=== PATIENT | male | born 1960 | race Caucasian/White ===

== ENCOUNTER 2018-08-26 02:01 | Emergency (ER) | payer BC ==
[2018-08-26 02:13] VITALS: BP 161/84; PULSE 93; O2SAT 91
--- NOTE | 2018-08-26 02:28 | ERPHSYRPT ---
- History of Present Illness Time Seen by Provider: 08/26/18 02:24 Source: patient Exam Limitations: no limitations Patient Subjective Stated Complaint: pt is alert and oriented. pt is ambulatory with a steady gait. pt comes in via police car. pt is intoxicated. pt denies alcohol or drug use. pt states he had pneumonia and was hospitalized with it last week. pt is tearful and uncooperative. Triage Nursing Assessment: see above Physician History: 58-year-old white male arrives with complaint that he is here for halfway clearance. Patient denies any complaints at this time. Past medical history includes atherosclerotic coronary artery disease, diabetes , COPD, myocardial infarction 4 Past surgical history includes cardiac stents. Social history occasional alcohol negative tobacco use negative drugs. Timing/Duration: today Severity: moderate Modifying Factors: Improves With: nothing Associated Symptoms: No nausea, No vomiting, No abdominal pain, No shortness of breath, No heartburn, No diaphoresis, No cough, No chills, No chest pain, No fever, No headaches, No loss of appetite, No malaise, No rash, No syncope, No seizure, No weakness Allergies/Adverse Reactions: No Known Drug Allergies Allergy (Unverified 08/26/18 02:13) Immunizations Up to Date: Yes - Review of Systems Constitutional: No Fever, No Chills Eyes: No Symptoms Ears, Nose, & Throat: No Symptoms (I could probably) Respiratory: No Cough, No Dyspnea Cardiac: No Chest Pain, No Edema, No Syncope Abdominal/Gastrointestinal: No Symptoms, No Abdominal Pain, No Nausea, No Vomiting, No Diarrhea Genitourinary Symptoms: No Symptoms Musculoskeletal: No Back Pain, No Neck Pain Skin: No Symptoms, No Rash Neurological: No Dizziness, No Focal Weakness, No Sensory Changes Psychological: No Symptoms Endocrine: No Symptoms All Other Systems: Reviewed and Negative - Past Medical History Pertinent Past Medical History: Yes Neurological History: No Pertinent History ENT History: No Pertinent History Cardiac History: Myocardial Infarction ([place]) Respiratory History: Pneumonia Endocrine Medical History: No Pertinent History Musculoskeletal History: No Pertinent History GI Medical History: No Pertinent History History: No Pertinent History Psycho-Social History: No Pertinent History Male Reproductive Disorders: No Pertinent History - Past Surgical History Past Surgical History: Yes Neuro Surgical History: No Pertinent History Cardiac: No Pertinent History Respiratory: No Pertinent History Gastrointestinal: No Pertinent History Genitourinary: No Pertinent History Musculoskeletal: No Pertinent History Male Surgical History: No Pertinent History - Social History Smoking Status: Unknown if ever smoked Drug Use: none - Nursing Vital Signs Nursing Vital Signs: Initial Vital Signs Temperature 97.9 F 08/26/18 02:07 Pulse Rate 93 H 08/26/18 02:07 Respiratory Rate 16 08/26/18 02:07 Blood Pressure 161/84 08/26/18 02:07 O2 Sat by Pulse Oximetry 91 L 08/26/18 02:07 Pain Scale Pain Intensity 0 - Physical Exam General Appearance: no apparent distress, alert Eye Exam: PERRL/EOMI, eyes nml inspection Ears, Nose, Throat Exam: normal ENT inspection, TMs normal, pharynx normal, moist mucous membranes Neck Exam: normal inspection, non-tender, supple, full range of motion Respiratory Exam: normal breath sounds, lungs clear, No respiratory distress Cardiovascular Exam: regular rate/rhythm, normal heart sounds, normal peripheral pulses, capillary refill <2 sec Gastrointestinal/Abdomen Exam: soft, normal bowel sounds, No tenderness, No mass Back Exam: normal inspection, normal range of motion, No CVA tenderness, No vertebral tenderness Extremity Exam: normal inspection (final white female), normal range of motion, pelvis stable Neurologic Exam: alert, oriented x 3, cooperative, in house counsel II-XII nml as tested, normal mood/affect, nml cerebellar function, nml station & gait, sensation nml, No motor deficits Skin Exam: normal color (she), warm, dry, No rash Lymphatic Exam: No adenopathy SpO2 Interpretation: normal (91%) SpO2: 91 - Course Nursing assessment & vital signs reviewed: Yes Ordered Tests: Active Orders 24 hr Category Date Time Status EKG-ER Only STAT Care 08/26/18 02:23 Active ACETAMINOPHEN Stat Lab 08/26/18 02:23 Ordered CBC W DIFF Stat Lab 08/26/18 02:23 Ordered CMP Stat Lab 08/26/18 02:23 Ordered ETHYL ALCOHOL Stat Lab 08/26/18 02:23 Ordered SALICYLATE Stat Lab 08/26/18 02:23 Ordered UA W/RFX UR CULTURE Stat Lab 08/26/18 02:23 Uncollected Urine Triage Profile Stat Lab 08/26/18 02:23 Uncollected - Progress Progress: improved Progress Note: 08/26/18 02:52 58-year-old white male with history of atherosclerotic coronary artery disease, diabetes, COPD, myocardial infarction 2, cardiac stents He is brought by the police for clearance. Patient with stable vital signs he is alert oriented 3 he denies distress. He admits to consuming several beers he denies any illicit drug use. Patient physical exam. Head atraumatic normocephalic. Eyes PERRLA EOMI fundi are unremarkable. Ears TMs mckay intact bilaterally. Nose is clear. Throat is clear. Neck is supple full range of motion nontender. Heart regular rate and rhythm without murmur. Lungs clear to auscultation and equal bilaterally. Abdomen soft nontender nondistended positive bowel sounds. Extremities full range of motion pulse equal symmetrical 2 over 4. Neuro cranial nerves II through XII are intact DTRs symmetrical equal to 4 [place] Coma Scale is 15. Patient is alert oriented 3. Impression patient here for halfway clearance. History of diabetes mellitus. History of atherosclerotic coronary artery disease. Plan. I have offered the patient CBC CMP blood alcohol level urine drug screen EKG. Patient has refused all. Patient does not appear to be in acute distress or severe symptoms. Plan release to halfway if patient continues to refuse screening tests. 08/26/18 03:02 Patient continues to refuse labs or EKG. Patient is not in acute distress he has normal vital signs. Will go ahead and discharge patient. 08/26/18 03:03 patient is cleared for halfway. - Departure Time of Disposition: 03:02 Departure Disposition: Group Home/Alf Clinical Impression: Group Home clearance Condition: Fair Critical Care Time: No Referrals: NAYANA PINEDA [Primary Care Provider] - Additional Instructions: Follow-up with halfway doctor or your family doctor if any problems. Return for acute distress or for severe symptoms.
== END 2018-08-26 03:18 | disposition home or self-care (01) ==
LOC: ED 02:01
DX: Z02.89 Encounter for other administrative examinations (principal); F10.129 Alcohol abuse with intoxication, unspecified; I25.10 Atherosclerotic heart disease of native coronary artery without angina pectoris; E11.9 Type 2 diabetes mellitus without complications; J44.9 Chronic obstructive pulmonary disease, unspecified; I25.2 Old myocardial infarction
CPT/HCPCS: 99283